=== PATIENT | female | born 1985 | race Caucasian/White ===

== ENCOUNTER 2018-11-15 13:07 | Emergency (ER) | payer MEDICAID ==
[~2018-11-15] VITALS: Wt 78.0 kg
[~2018-11-15 13:07] MED LIST: AMOX500C2 PO; IBUP-1561 PO
[2018-11-15 13:19] VITALS: BP 121/73; PULSE 73; RESP 18
== END 2018-11-15 14:39 | disposition home or self-care (01) ==
LOC: FTE 13:07 → E/R 14:39
DX: H66.92 Otitis media, unspecified, left ear (principal)
CPT/HCPCS: 99283